=== PATIENT | male | born 1955 | race Caucasian/White ===

== ENCOUNTER 2018-05-18 04:38 | Emergency (ER) | payer SELFPAY ==
--- NOTE | 2018-05-18 04:49 | ER Report ---
History and Physical Time Seen By MD: 04:48 Hx. 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 STATES HE FEELS SHORT OF BREATH, NAUSEATED, AND HAS A HEADACHE. PT IS FROM [place], BUT HAS BEEN TO THIS ALTITUDE BEFORE. STATES THIS IS THE THIRD TIME HE HAS GOTTEN "ALTITUDE SICKNESS" (CHRISTIANO BILLINGSLEY MD) HPI/ROS CHIEF COMPLAINT: shortness of breath, nausea, headache HISTORY OF PRESENT ILLNESS: This is a 63 year old male. He is having shortness of breath, nausea and a headache. He thinks that this is due to acute mountain sickness. He has had this in the past and has been up at his cabin at 10,000 [place]. He had been doing some work there since yesterday. Symptoms started tonight. Very similar to symptoms he has had in the past. Improvement of the breathing as he has come down in elevation. Had been eating and drinking normally yesterday. 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 No alcohol use. Had been given medicines in the past by his doctor to start prior to going to higher elevations. No fever of chills. He does not think he had any bad food exposures, but did eat some processed ham and cheese sandwiches, and he says he is sensitive to preservatives. REVIEW OF SYSTEMS: Constitutional: No fever or chills. Eyes: No vision changes. ENT: No sore throat. No congestion. Cardiovascular: No chest pain. Respiratory: No cough. Gastrointestinal: No abdominal pain. No change in bowel movements. Genitourinary: No dysuria. No frequency Musculoskeletal: No musculoskeletal pain. Skin: No rashes. Neurological: No numbness. No weakness. (CHRISTIANO BILLINGSLEY MD) Allergies: Uncoded Allergies: PAIN MEDICATION- UNKOWN (Allergy, Mild, 05/18/18) Home Meds No Active Prescriptions or Reported Meds Reviewed Nurses Notes: Yes (CHRISTIANO BILLINGSLEY MD) Hx Substance Use Disorder: No Hx Alcohol Use: No (CHRISTIANO BILLINGSLEY MD) Constitutional Vital Sign - Last 24 Hours 05/18/18 05/18/18 05/18/18 05/18/18 04:42 05:00 05:05 05:20 Temp 97.6 Pulse 74 69 68 63 Resp 16 12 B/P (MAP) 146/101 152/97 (115) Pulse Ox 98 100 100 100 O2 Delivery Room Air Nasal Cannula 05/18/18 05/18/18 05/18/18 05/18/18 05:30 05:35 05:50 06:00 Pulse 71 72 Resp 16 15 B/P (MAP) 158/96 (116) 144/103 (117) Pulse Ox 99 99 05/18/18 05/18/18 05/18/18 05/18/18 06:05 06:10 06:30 06:40 Pulse 67 66 67 Resp 23 12 12 B/P (MAP) 134/85 (101) Pulse Ox 98 98 97 05/18/18 05/18/18 05/18/18 07:00 07:10 07:15 Pulse 66 72 Resp 13 22 B/P (MAP) 134/98 (110) Pulse Ox 98 97 (CINDY BANKS MD) Physical Exam General Appearance: The patient is alert. Having some distress due to symptoms. Eyes: Pupils are equal, round. No pallor, injection or icterus. Extraocular movements are intact. ENT: Mucous membranes are moist. Normal oral mucosa. Posterior oropharynx is normal. Respiratory: Lungs are clear to auscultation. There are no retractions or accessory muscle use. Cardiovascular: Regular rate and rhythm. No murmurs, gallops or rubs. Normal capillary refill. No edema. Blood pressure running elevated. Gastrointestinal: Abdomen is soft and non tender. Nondistended. Normal active bowel sounds. Neurological: Alert and oriented x3. Cranial nerves II through XII show no acute deficits on my exam. No focal neurologic deficits in the extremities. Skin: Warm and diaphoretic. No rashes. Musculoskeletal: Extremities are nontender. No tenderness in palpation of the back and spine. DIFFERENTIAL DIAGNOSIS: After history and physical exam, differential diagnosis was considered for short of breath, nausea and headache, likely due to acute altitude related illness, but cannot entirely rule out acute coronary syndrome, infectious process, chemical/solvent exposure. He is concerned about cost and does not have insurance. We discussed testing. We will start an IV, give Zofran and Normal saline, oxygen even though his saturations are normal, EKG and labs including CBC, CMP, Troponin. He would like to hold of on other interventions until we see how he does with this. ([facility],CHRISTIANO Wang MD) Medical Decision Making Data Points Result Diagram: 05/18/18 0454 05/18/18 0454 Laboratory Hematology Test 05/18/18 04:54 Red Blood Count 5.08 M/uL (4.00-5.60) Mean Corpuscular Volume 88.1 fL (80.0-96.0) Mean Corpuscular Hemoglobin 30.5 pg (26.0-33.0) Mean Corpuscular Hemoglobin Concent 34.7 g/dL (32.0-36.0) Red Cell Distribution Width 13.2 % (11.5-14.5) Mean Platelet Volume 7.2 fL (7.2-11.1) Neutrophils (%) (Auto) 73.0 % (39.4-72.5) Lymphocytes (%) (Auto) 17.5 % (17.6-49.6) Monocytes (%) (Auto) 7.0 % (4.1-12.4) Eosinophils (%) (Auto) 1.9 % (0.4-6.7) Basophils (%) (Auto) 0.6 % (0.3-1.4) Nucleated RBC Relative Count (auto) 0.0 /100WBC Neutrophils # (Auto) 8.5 K/uL (2.0-7.4) Lymphocytes # (Auto) 2.0 K/uL (1.3-3.6) Monocytes # (Auto) 0.8 K/uL (0.3-1.0) Eosinophils # (Auto) 0.2 K/uL (0.0-0.5) Basophils # (Auto) 0.1 K/uL (0.0-0.1) Nucleated RBC Absolute Count (auto) 0.00 K/uL Sodium Level 139 mmol/L (137-145) Potassium Level 3.4 mmol/L (3.5-5.0) Chloride Level 99 mmol/L (98-107) Carbon Dioxide Level 29 mmol/L (22-30) Blood Urea Nitrogen 23 mg/dl (9-21) Creatinine 0.80 mg/dl (0.66-1.25) Glomerular Filtration Rate Calc > 60.0 Random Glucose 101 mg/dl (75-110) Calcium Level 9.1 mg/dl (8.4-10.2) Total Bilirubin 0.7 mg/dl (0.2-1.3) Aspartate Amino Transf (AST/SGOT) 41 U/L (0-35) Alanine Aminotransferase (ALT/SGPT) 52 U/L (0-56) Alkaline Phosphatase 55 U/L (0-126) Troponin I < 0.012 ng/ml Total Protein 7.4 g/dl (6.3-8.2) Albumin 4.3 g/dl (3.5-5.0) Chemistry Test 05/18/18 04:54 White Blood Count 11.7 k/uL (4.5-11.0) Red Blood Count 5.08 M/uL (4.00-5.60) Hemoglobin 15.5 g/dL (14.0-18.0) Hematocrit 44.7 % (42.0-52.0) Mean Corpuscular Volume 88.1 fL (80.0-96.0) Mean Corpuscular Hemoglobin 30.5 pg (26.0-33.0) Mean Corpuscular Hemoglobin Concent 34.7 g/dL (32.0-36.0) Red Cell Distribution Width 13.2 % (11.5-14.5) Platelet Count 263 K/uL (150-450) Mean Platelet Volume 7.2 fL (7.2-11.1) Neutrophils (%) (Auto) 73.0 % (39.4-72.5) Lymphocytes (%) (Auto) 17.5 % (17.6-49.6) Monocytes (%) (Auto) 7.0 % (4.1-12.4) Eosinophils (%) (Auto) 1.9 % (0.4-6.7) Basophils (%) (Auto) 0.6 % (0.3-1.4) Nucleated RBC Relative Count (auto) 0.0 /100WBC Neutrophils # (Auto) 8.5 K/uL (2.0-7.4) Lymphocytes # (Auto) 2.0 K/uL (1.3-3.6) Monocytes # (Auto) 0.8 K/uL (0.3-1.0) Eosinophils # (Auto) 0.2 K/uL (0.0-0.5) Basophils # (Auto) 0.1 K/uL (0.0-0.1) Nucleated RBC Absolute Count (auto) 0.00 K/uL Glomerular Filtration Rate Calc > 60.0 Calcium Level 9.1 mg/dl (8.4-10.2) Total Bilirubin 0.7 mg/dl (0.2-1.3) Aspartate Amino Transf (AST/SGOT) 41 U/L (0-35) Alanine Aminotransferase (ALT/SGPT) 52 U/L (0-56) Alkaline Phosphatase 55 U/L (0-126) Troponin I < 0.012 ng/ml Total Protein 7.4 g/dl (6.3-8.2) Albumin 4.3 g/dl (3.5-5.0) (CINDY BANKS MD) EKG/Imaging EKG Interpretation 12 lead EKG: Rhythm: normal sinus rhythm, rate 65 [place]: normal QRS: Incomplete right bundle ST segments: normal (CHRISTIANO BILLINGSLEY MD) ED Course/Re-evaluation Clinical Indication for ER IV: Hydration, IV Access ED Course He had Zofran 4mg IV and a liter of normal saline. Initial labs unremarkable. He is no longer short of breath, but still having mild headache and nausea. We talked about other labs and a chest x-ray, but he would like to wait. I explained to him that we worried about acute pulmonary edema and cerebral edema as well as infectious etiology and the possibility of blood clots in the lungs. With a normal white count and improvement in breathing I felt like the pulmonary infectious process and blood clot would be less likely to be present. We may need to consider imaging of the chest and head with CT scan as well. At this time, he would like to try other medicines to help the nausea and see if this helps. We will give Phenergan 12.5mg IV. He feels like he may be a little anxious. We will give Ativan 0.5mg IV as well and re-evaluate. Re-evaluation shows complete resolution of symptoms. No further headache. Nausea is gone. Not short of breath. Vital signs are stable. He is very sedated at this point. He is taking ice chips without vomiting. We are going to watch him and let him wake up and see if symptoms are gone and re-evaluate. Turned Over The care of the patient was turned over to Dr. Banks. Christiano Billingsley M.D. I authorize my typed signature that I authenticated this report. (CHRISTIANO BILLINGSLEY MD) ED Course ED clinical course medical decision making patient signed out to me for disposition 63-year-old male who is concerned about altitude issues he had vomiting patient was signed over to me by Dr. Melendez's he is refusing a chest x- ray is refusing a head CT is refusing chest CT pending blood work he wants to leave now he has no desire to stay Decision to Disposition Date: May 18, 2018 Decision to Disposition Time: 07:38 (CINDY BANKS MD) Depart Departure Latest Vital Signs Vital Signs Date Time Temp Pulse Resp B/P (MAP) Pulse Ox O2 Delivery O2 Flow Rate FiO2 05/18/18 07:15 72 22 97 05/18/18 07:00 134/98 (110) 05/18/18 05:00 Nasal Cannula 05/18/18 04:42 97.6 (CINDY BANKS MD) Impression: Primary Impression: Altitude illness Condition: Improved Disposition: HOME OR SELF-CARE New Scripts No Active Prescriptions or Reported Meds Patient Instructions: Acute Nausea and Vomiting (DC) CHRISTIANO BILLINGSLEY MD May 18, 2018 04:49 CINDY BANKS MD May 18, 2018 07:38
[2018-05-18] MEDS ORDERED: NS(*) 0.9% 1000 ML BAG 1,000 ML IV ONE (04:55)
[2018-05-18] MEDS ORDERED: ONDANSETRON 4 MG/2 ML VIAL IVP ONE (04:55)
[2018-05-18 05:12] LABS: PLATELET COUNT, AUTOMATED 263 K/uL (150-450)
--- NOTE | 2018-05-18 05:43 | EKG ---
[place] [facility] [place] NAME: ELROY BEARDEN : [id number] MR: [id number] V: [id number] EXAM DATE: ORDERING PHYSICIAN: OLGA LINDSAY TECHNOLOGIST: MARGIE Test Reason : CARDIAC Blood Pressure : / mmHG Vent. Rate : 065 BPM Atrial Rate : 065 BPM P-R Int : 158 ms QRS Dur : 096 ms QT Int : 426 ms P-R-T Axes : 039 -02 021 degrees QTc Int : 443 ms Sinus rhythm Nonspecific ST-T findings anteriorly Borderline ECG No previous ECGs available Confirmed by DEVIN LAZARO ([id number] on 05/18/2018 7:18:17 AM Referred By: Confirmed By:DEVIN LAZARO
[2018-05-18] MEDS ORDERED: PROMETHAZINE 25 MG/ML 1 ML AMP IVP ONE (05:50)
[2018-05-18] MEDS ORDERED: LORazepam 2 MG/ML VIAL IVP ONE (05:50)
[2018-05-18 07:40] VITALS: BP 141/97
== END 2018-05-18 07:45 | disposition home or self-care (01) ==
LOC: ER 05:16
DX: T70.20XA Unspecified effects of high altitude, initial encounter (principal)
CPT/HCPCS: 84484; 85025; 93005; 96361; 96374; 96375; 99284; J2060; J2405; J2550; J7030; 82040; 82247; 82310; 82374; 82435; 82565; 82947; 84075; 84132; 84155; 84295; 84450; 84460; 84520